=== PATIENT | male | born 1990 | race Caucasian/White ===

== ENCOUNTER 2019-03-15 14:17 | Emergency (ER) | payer OTHER ==
[2019-03-15] MEDS ORDERED: Lidocaine 1% 10 ML MDV INJECT ONE (14:34)
--- NOTE | 2019-03-15 14:49 | EDM.PDOC ---
<Enedina Velasquez - Last Filed: 03/15/19 14:44> ED HPI GENERAL MEDICAL PROBLEM - General Chief Complaint: Laceration Stated Complaint: RT INDEX FINGER LACERATION Time Seen by Provider: 03/15/19 14:23 Source of Information: Reports: Patient History Limitations: Reports: No Limitations - History of Present Illness INITIAL COMMENTS - FREE TEXT/NARRATIVE: Patient is a pleasant 29 year old male that presents to ED with a right index finger laceration. 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 He states he did not feel when the cut happened. He denies any pain at this time and that the wound bled for 10 minutes. He states after looking to figure out if he needed stitches, he started to hold pressure and has been for the last 45 minutes. He reports his last Tetanus vaccine was roughly two years ago. Treatments PROPOSAL WRITER: Reports: Other (see below) Other Treatments PROPOSAL WRITER: pressure Right Finger-Index Pain Score (Numeric/FACES): 2 - Related Data Allergies Allergy/AdvReac Type Severity Reaction Status Date / Time No Known Allergies Allergy Verified 03/15/19 14:26 Home Meds: Home Meds . [No Known Home Meds] 03/15/19 [History] Past Medical History - Past Health History Medical/Surgical History: Denies Medical/Surgical History Social & Family History - Tobacco Use Smoking Status *Q: Never Smoker - Caffeine Use Caffeine Use: Reports: Coffee, Energy Drinks - Recreational Drug Use Recreational Drug Use: No ED ROS GENERAL - Review of Systems Review Of Systems: ROS reveals no pertinent complaints other than HPI. Musculoskeletal: Reports: No Symptoms Skin: Reports: Wound (1cm linear laceration to distal right index finger) ED EXAM, SKIN/RASH Exam: See Below Exam Limited By: No Limitations General Appearance: Alert, No Apparent Distress Respiratory/Chest: No Respiratory Distress, Lungs Clear, Normal Breath Sounds Cardiovascular: Regular Rate, Rhythm, No Murmur Extremities: Normal Range of Motion, Normal Capillary Refill Neurological: Alert, Oriented, Normal Cognition, No Motor/Sensory Deficits Skin: Warm, Dry, Normal Color, No Rash, Wound/Incision (1cm linear laceration on anterior aspect of distal right index finger) Course - Vital Signs Last Recorded V/S: Last Vital Signs Temp 98.5 F 03/15/19 14:27 Pulse 74 06/27/19 14:27 Resp 20 03/15/19 14:27 BP 125/85 03/15/19 14:27 Pulse Ox 98 03/15/19 14:27 - Orders/Labs/Meds Meds: Medications Discontinued Medications Generic Name Dose Route Start Last Admin Trade Name Ravin PRN Reason Stop Dose Admin Lidocaine HCl 10 ml 03/15/19 14:34 Xylocaine 1% INJECT 03/15/19 14:35 ONETIME ONE Departure - Departure Disposition: Home, Self-Care 01 Clinical Impression: Laceration of finger Qualifiers: Encounter type: initial encounter Finger: index finger Damage to nail status: without damage Foreign body presence: without foreign body Laterality: right Qualified Code(s): S61.210A - Laceration without foreign body of right index finger without damage to nail, initial encounter - Discharge Information Instructions: Stitches, María Elena, or Adhesive Wound Closure, [id number] Referrals: PCP,Unknown [Primary Care Provider] - Forms: ED Department Discharge Additional Instructions: You have been evaluated in the ED for your laceration. Sutures will need to stay in for 10-14 days (03/25 or 03/29) You may return to the ED or clinic for removal. Please keep this area clean and dry, you may cleanse with regular soap and water. No vigorous scrubbing. Please return to ED if your symptoms change or worsen. <Adela Tatum - Last Filed: 03/15/19 15:36> ED HPI GENERAL MEDICAL PROBLEM - History of Present Illness INITIAL COMMENTS - FREE TEXT/NARRATIVE: I have read and reviewed the student's HPI and examined the patient and agree with Jim Velasquez NP student. ED SKIN PROCEDURES - Laceration/Wound Repair Right Distal Digit - 2nd (Index) Lac/Wound length In cm: 1 Appearance: Superficial, Linear (with skin flap), Mildly Contaminated Distal NVT: Neuro & Vascular Intact, No Tendon Injury Anesthetic Type: Local Local Anesthesia - Lidocaine (Xylocaine): 1% Plain Local Anesthetic Volume: 2cc Skin Prep: Chlorhexidine (Hibiciens) Saline Irrigation (cc's): 250 Exploration/Debridement/Repair: Wound Explored, In a Bloodless Field, Explored to Base Closed with: Sutures Suture Size: 4-0 # of Sutures: 3 Suture Type: Prolene, Interrupted, Simple Sterile Dressing Applied: Nurse Tetanus Status Addressed: Yes Complications: No Departure - Departure Time of Disposition: 15:36 Condition: Fair - Discharge Information *PRESCRIPTION DRUG MONITORING PROGRAM REVIEWED*: No *COPY OF PRESCRIPTION DRUG MONITORING REPORT IN PATIENT JUAN: No
== END 2019-03-15 15:40 | disposition home or self-care (01) ==
LOC: JD.ED 14:17
DX: S61.210A Laceration without foreign body of right index finger without damage to nail, initial encounter (principal); W26.8XXA Contact with other sharp object(s), not elsewhere classified, initial encounter
CPT/HCPCS: 12001; 99283; J2001; 99282